=== PATIENT | male | born 1950 | race Caucasian/White ===

== ENCOUNTER 2018-04-03 08:51 | Inpatient (IN) ==
[2018-04-03] MEDS: 0.9 % Sodium Chloride 1,000 ML IVC SCH (10:05)
--- NOTE | 2018-04-03 10:41 | History & Physical Report ---
Date of Encounter: 04/03/18 Time of Encounter: 10:40 24 Hour HP Update - Instructions Instructions: If the History and Physical is less than 30 days old and was completed prior to A.M. admission and or procedure and has NOT been updated on calendar day of procedure please complete this update prior to performing procedure. - Update Patient reports changes in Medical Condition: No Changes in examination, assessment, or condition: No Changes in Medication: No Preop tests/diagnostics Reviewed: Yes Surgery Remains Indicated: Yes Consent for Planned Operative Procedure(s) Verified: Yes - Pre-Operative Checklist Prophylactic Antibiotic Ordered: Yes
--- NOTE | 2018-04-03 10:42 | Pre-Sedation Evaluation ---
Pre-sedation evaluation - Pre-sedation checklist Date of procedure: 04/03/18 Procedure: PACEMAKER INSERTION Recent Vitals: Last Vital Signs Temp 96.8 F L 04/03/18 09:45 Pulse 63 04/03/18 09:45 Resp 18 04/03/18 09:45 BP 153/100 04/03/18 09:45 Pulse Ox 99 04/03/18 09:45 H&P (including ROS) documented in medical record: Yes Previous reaction to sedatives/anesthetics: No Dietary Status: NPO after Midnight Airway Assessment: Patient can open mouth completely, TMJ function normal, Micrognathia (under-bite, receding chin) absent Dentition: No loose teeth or bridges Possible difficult airway: No ASA Classification *see protocol: CLASS II-Mild systemic disease Plan of Care: Pt appropriate candidate for procedure/moderate/conscious sedation, Risks/benefits of procedure/sedation discussed w/ patient/family
[2018-04-03] MEDS ORDERED: *HR* Midazolam HCl 2 MG/2 ML VIAL ONE (11:04)
[2018-04-03] MEDS ORDERED: *HR* FentaNYL (PF) 100 MCG/2 ML VIAL ONE (11:04)
[2018-04-03] MEDS ORDERED: Water for inj. (sterile) 10 ML IV ONE (11:07)
[2018-04-03] MEDS ORDERED: 0.9 % Sodium Chloride 500 ML ONE (11:07)
[2018-04-03] MEDS ORDERED: Acetaminophen 325 MG TABLET PO PRN (12:10)
[2018-04-03] MEDS ORDERED: *HR* OxyCODONE Immed Rel 5 MG TABLET PO PRN (12:10)
--- NOTE | 2018-04-03 15:31 | Electrocardiograph Report ---
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
[2018-04-03] MEDS: Artificial Tears SOLN 15 ML BOTTLE OP SCH (20:02)
[2018-04-04 04:00] LABS: BUN/Creatinine Ratio 18 (6-26); Blood Urea Nitrogen 20 mg/dL (8-23); Carbon Dioxide 26 mEq/L (23-29); Chloride 107 mEq/L (98-107); Potassium 4.2 mEq/L (3.5-5.1); Sodium 139 mEq/L (136-145); eGFR For Non-African Americans > 60 (> 60)
[2018-04-04] MEDS: Aspirin Enteric Coated 325 MG Tablet PO SCH (08:38)
[2018-04-04] MEDS: Artificial Tears SOLN 15 ML BOTTLE OP SCH ×2 (09:43→21:56)
--- NOTE | 2018-04-04 10:32 | Cardiology Progress Note ---
Date of Encounter: 04/04/18 Time of Encounter: 10:29 Assessment and Plan (1) Cardiac pacemaker Current Visit: Yes Status: Acute S/p dual chamber PPM placement for sinus pauses up to 4 seconds seen on loop recorder. Loop recorder also removed. Post day device check shows normal functioning device. CXR is pending. Patient denies pain. Out-pt f/u with [facility] [facility] and Dr. Geovani Dillard will be coordinated. (2) Encounter for monitoring anti-arrhythmic therapy Current Visit: Yes Status: Acute H/o PAF on flecainide. Discussed with Dr. Geovani Dillard. Recommend increasing from 100 mg Q12 hours to 150 mg every 12 hours. Patient received dose this morning. Will start flecainide 150 mg Q12hr with evening dose. Will need to be monitored for five doses. Anticipate d/c saturday04/07/18. EKG baseline 04/03/18, NSR, HR 59, 416/414, QRS 96. Repeat EKG Q am. Eliquis held for PPM placement and loop recorder removal. I will discuss restarting with Dr. Dillard. (3) Atrial fibrillation Current Visit: Yes Status: Acute H/o symptomatic PAF on flecainide and eliquis. TTE 05/2016- LVEF 65%. Normal left ventricular size and systolic function. There is evidence of mild diastolic dysfunction of the left ventricle. Normal right ventricular size and function. No significant valvular dysfunction. No pulmonary hypertension. Qualifiers: Atrial fibrillation type: paroxysmal Qualified Code(s): I48.0 - Paroxysmal atrial fibrillation (4) Sinus pause Current Visit: Yes Status: Acute Discussion w patient/family: The assessment and plan as outlined above was discussed with the patient and/or family members who expressed understanding and agreement. All questions were answered. Thank you for involving us in the care of your patient. Please call with any questions. Subjective Principal diagnosis: atrial fibrillation, PPM placement Interval history: Mr. Plummer is a 67-year old male who presented for elective PPM placement after he was found to have sinus pauses up to 4 seconds on is loop recorder. He has a past medical history of syncopal episode correlated with sinus pause and PAF on flecainide. He was also recommended to have his flecainide increased during his stay [place] to frequent symptomatic PAF. He denies pain with his incision. Reports having afib last night and not feeling well with it. Objective Vital Signs, Last 4 Hours Temp Pulse Resp BP Pulse Ox 04/04/18 07:26 97.7 F 64 17 117/81 97 General: Conversant, No Apparent Distress HEENT: Atraumatic, Normocephaly, Mucus Membranes Moist Neck: No JVD, Normal carotid pulses Cardiac: Reg Rate and Rhythm, Normal S1 and S2, No Murmur, Other (TOREY incision dry and dressing intact. No redness, edema, or swelling. ) Lungs: Normal Breath Sounds, No Wheeze, Rales, Rhonchi Neuro: Alert and responsive, No focal deficits noted Abdomen: Soft, Non-Tender Skin: No rashes noted on visualized skin Musculoskeletal: No Chest Wall Tenderness Extremities: No Clubbing, No Cyanosis, No Edema, Normal Pulses Results 04/04/18 03:08 Lab Results 04/04/18 03:08 Sodium 139 Potassium 4.2 Chloride 107 Carbon Dioxide 26 BUN 20 Creatinine 1.12 - EKG Interpretation EKG results cardiology: personally reviewed Consult Discharge Plan - Plan Referrals: Geovani Jj MD [Primary Care Provider] -
--- NOTE | 2018-04-04 13:37 | Electrocardiograph Report ---
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
--- NOTE | 2018-04-04 15:44 | Event Note ---
Date of Encounter: 04/04/18 Time of Encounter: 15:40 - Cardiology Event Note Discussed with Dr. Geovani Dillard; recommend inpatient admission after PPM (sinus pause) for increase in Flecainide d/t symptomatic PAF. Symptoms include palpitations, fatigue, activity intolerance. Of note, patient had ~1 hour of PAF overnight per telemetry review prior to Flecainide dose increase. Plan to increase Flecainde to 150 mg BID; first dose this evening. Will need inpatient monitoring for at least 5 doses. Restart Eliquis x1 week after PPM. Anticipate discharge on Saturday.
[2018-04-04] MEDS: 0.9 % Sodium Chloride 1,000 ML IVC SCH (16:34)
[2018-04-04] MEDS: *HR* Heparin 5,000 UNIT/ML VIAL SQ SCH (17:13)
[2018-04-05] MEDS: *HR* Heparin 5,000 UNIT/ML VIAL SQ SCH ×2 (06:28→18:17)
[2018-04-05] MEDS: Aspirin Enteric Coated 325 MG Tablet PO SCH (08:25)
[2018-04-05] MEDS: 0.9 % Sodium Chloride 1,000 ML IVC SCH (08:27)
[2018-04-05] MEDS: Artificial Tears SOLN 15 ML BOTTLE OP SCH ×2 (08:27→20:44)
--- NOTE | 2018-04-05 09:33 | Cardiology Progress Note ---
Date of Encounter: 04/05/18 Time of Encounter: 08:45 Assessment and Plan (1) Atrial fibrillation Current Visit: Yes Status: Acute Admission s/p PPM implant for increase in Flecainide (150 mg Q12H) d/t symptomatic PAF--dyspnea, palpitations, fatigue. Baseline ECG: SR 60 BPM QT/QTc 399, 399 ms s/p 2 doses of Flecainide ECG today, 04/05/18 SR 63 BPM QT/QTc 431/438 No episodes of PAF overnight. Continue Felcainide and lopressor. Will need inpatient monitoring for at least 5 doses, anticipate discharge to home Saturday AM. Eliquis on hold s/p PPM implant, resume 04/10/18. Continue Lovenox at VTE prophylaxis dose. Qualifiers: Atrial fibrillation type: paroxysmal Qualified Code(s): I48.0 - Paroxysmal atrial fibrillation (2) Cardiac pacemaker Current Visit: Yes Status: Acute S/p dual chamber PPM placement for sinus pauses up to 4 seconds seen on loop recorder. Loop recorder also removed. Post day device check shows normal functioning device. CXR demonstrated stable chest. Patient denies pain. Out-pt f/u with [facility] and Dr. Geovani Dillard will be coordinated. (3) Encounter for monitoring anti-arrhythmic therapy Current Visit: Yes Status: Acute As above. (4) Sinus pause Current Visit: Yes Status: Acute s/p PPM Discussion w patient/family: The assessment and plan as outlined above was discussed with the patient and/or family members who expressed understanding and agreement. All questions were answered. Thank you for involving us in the care of your patient. Please call with any questions. The patient will be discussed and reviewed with Dr. Saeed; changes to be made accordingly. Subjective Principal diagnosis: atrial fibrillation, PPM placement Interval history: Seen and examined. No complaints overnight. No issues with PPM/loop recorder removal incisions. No PAF described. Objective Vital Signs, Last 4 Hours Temp Pulse Resp BP Pulse Ox 04/05/18 07:12 97.6 F 74 19 121/78 96 General: Conversant, No Apparent Distress HEENT: Atraumatic, Normocephaly, Mucus Membranes Moist Neck: No JVD, Normal carotid pulses Cardiac: Reg Rate and Rhythm, Normal S1 and S2, No Murmur Lungs: Normal Breath Sounds, No Wheeze, Rales, Rhonchi Neuro: Alert and responsive, No focal deficits noted Abdomen: Soft, Non-Tender Skin: No rashes noted on visualized skin Musculoskeletal: No Chest Wall Tenderness Extremities: No Clubbing, No Cyanosis, No Edema, Normal Pulses Other: left upper chest wall PPM site: dressing C/D/I, no oozing or bleeding noted. No swelling. left mid chest wall: ILR removal site--dressing C/D/I Results 04/04/18 03:08 Active Medications Acetaminophen (Tylenol) 650 mg PO Q4HR PRN PRN Reason: Mild Pain Stop: 10/03/18 12:11 Artificial Tears (Akwa Tears) 1 drop OP BID DAISY Stop: 10/03/18 21:01 Last Admin: 04/05/18 08:27 Dose: 1 drop Aspirin (Aspirin Ec) 325 mg PO DAILY DAISY Stop: 10/04/18 09:01 Last Admin: 04/05/18 08:25 Dose: 325 mg Flecainide Acetate (Flecainide) 150 mg PO Q12HR DAISY Stop: 10/04/18 18:01 Last Admin: 04/05/18 06:28 Dose: 150 mg Heparin Sodium (Porcine) (Heparin) 5,000 unit SQ Q12HCO DAISY Stop: 10/04/18 18:01 Last Admin: 04/05/18 06:28 Dose: 5,000 unit Sodium Chloride (0.9 % Sodium Chloride) 1,000 mls @ 25 mls/hr IVC .Q24H DAISY Stop: 10/03/18 09:31 Last Admin: 04/05/18 08:27 Dose: Not Given Metoprolol Tartrate (Lopressor) 25 mg PO BID DAISY Stop: 10/03/18 21:01 Last Admin: 04/05/18 08:25 Dose: 25 mg Naproxen (Naprosyn) 500 mg PO TID PRN; Protocol PRN Reason: Pain Stop: 10/03/18 12:13 Oxycodone HCl (Roxicodone) 5 mg PO Q4HR PRN; Protocol PRN Reason: Severe Pain Stop: 10/03/18 12:11 - Imaging and Cardiology Other Results: 12 hour tele: avg HR=66 SR. No PAF noted. - EKG Interpretation EKG results cardiology: personally reviewed Consult Discharge Plan - Plan Referrals: Geovani Jj MD [Primary Care Provider] - 04/14/18 10:15 am
[2018-04-06] MEDS: *HR* Heparin 5,000 UNIT/ML VIAL SQ SCH ×2 (06:48→18:05)
--- NOTE | 2018-04-06 09:06 | Cardiology Progress Note ---
Date of Encounter: 04/06/18 Time of Encounter: 08:30 Assessment and Plan (1) Atrial fibrillation Current Visit: Yes Status: Acute Admission s/p PPM implant for increase in Flecainide (150 mg Q12H) d/t symptomatic PAF--dyspnea, palpitations, fatigue. Baseline ECG: SR 60 BPM QT/QTc 399, 399 ms s/p 4 doses of Flecainide ECG today, 04/06/18 SR 61 BPM QT/QTc 413/415 No episodes of PAF overnight. Continue Felcainide and lopressor. Will need inpatient monitoring for at least 5 doses, anticipate discharge to home Saturday AM. Eliquis on hold s/p PPM implant, resume 04/10/18. Continue Lovenox at VTE prophylaxis dose. Qualifiers: Atrial fibrillation type: paroxysmal Qualified Code(s): I48.0 - Paroxysmal atrial fibrillation (2) Cardiac pacemaker Current Visit: Yes Status: Acute S/p dual chamber PPM placement for sinus pauses up to 4 seconds seen on loop recorder. Loop recorder also removed. Post day device check shows normal functioning device. CXR demonstrated stable chest. Patient denies pain. Out-pt f/u with [facility] and Dr. Geovani Dillard will be coordinated. (3) Encounter for monitoring anti-arrhythmic therapy Current Visit: Yes Status: Acute As above. (4) Sinus pause Current Visit: Yes Status: Acute s/p PPM Discussion w patient/family: The assessment and plan as outlined above was discussed with the patient and/or family members who expressed understanding and agreement. All questions were answered. Thank you for involving us in the care of your patient. Please call with any questions. The patient will be discussed and reviewed with Dr. Saeed; changes to be made accordingly. Subjective Principal diagnosis: atrial fibrillation, PPM placement Interval history: Seen and examined. No complaints overnight. No issues with PPM/loop recorder removal incisions. ~25 minutes of PAF overnight, he reports may be secondary to late night snack of chocolate. Objective Vital Signs, Last 4 Hours Temp Pulse Resp BP Pulse Ox 04/06/18 08:09 97.9 F 68 18 115/80 94 04/06/18 05:46 97.8 F 60 18 108/71 96 General: Conversant, No Apparent Distress HEENT: Atraumatic, Normocephaly, Mucus Membranes Moist Neck: No JVD, Normal carotid pulses Cardiac: Reg Rate and Rhythm, Normal S1 and S2, No Murmur Lungs: Normal Breath Sounds, No Wheeze, Rales, Rhonchi Neuro: Alert and responsive, No focal deficits noted Abdomen: Soft, Non-Tender Skin: No rashes noted on visualized skin Musculoskeletal: No Chest Wall Tenderness Extremities: No Clubbing, No Cyanosis, No Edema, Normal Pulses Other: left upper chest wall: dressing removed, steri strips intact, incision well approximated without bleeding. Left mid chest ILR removal site: dressing removed, steri strips intact. Results 04/04/18 03:08 Active Medications Acetaminophen (Tylenol) 650 mg PO Q4HR PRN PRN Reason: Mild Pain Stop: 10/03/18 12:11 Artificial Tears (Akwa Tears) 1 drop OP BID DAISY Stop: 10/03/18 21:01 Last Admin: 04/05/18 20:44 Dose: Not Given Aspirin (Aspirin Ec) 325 mg PO DAILY DAISY Stop: 10/04/18 09:01 Last Admin: 04/05/18 08:25 Dose: 325 mg Flecainide Acetate (Flecainide) 150 mg PO Q12HR DAISY Stop: 10/04/18 18:01 Last Admin: 04/06/18 06:47 Dose: 150 mg Heparin Sodium (Porcine) (Heparin) 5,000 unit SQ Q12HCO DAISY Stop: 10/04/18 18:01 Last Admin: 04/06/18 06:48 Dose: 5,000 unit Sodium Chloride (0.9 % Sodium Chloride) 1,000 mls @ 25 mls/hr IVC .Q24H DAISY Stop: 10/03/18 09:31 Last Admin: 04/05/18 08:27 Dose: Not Given Metoprolol Tartrate (Lopressor) 25 mg PO BID DAISY Stop: 10/03/18 21:01 Last Admin: 04/05/18 20:44 Dose: 25 mg Naproxen (Naprosyn) 500 mg PO TID PRN; Protocol PRN Reason: Pain Stop: 10/03/18 12:13 Last Admin: 04/05/18 18:49 Dose: 500 mg Oxycodone HCl (Roxicodone) 5 mg PO Q4HR PRN; Protocol PRN Reason: Severe Pain Stop: 10/03/18 12:11 - Imaging and Cardiology Other Results: 12 hour tele: avg HR=66. ~20 minutes PAF noted overnight. - EKG Interpretation EKG results cardiology: personally reviewed Consult Discharge Plan - Plan Referrals: Geovani Jj MD [Primary Care Provider] - 04/14/18 10:15 am
[2018-04-06] MEDS: Aspirin Enteric Coated 325 MG Tablet PO SCH (10:49)
[2018-04-06] MEDS: Artificial Tears SOLN 15 ML BOTTLE OP SCH ×2 (10:53→21:19)
[2018-04-06] MEDS: 0.9 % Sodium Chloride 1,000 ML IVC SCH (10:54)
[2018-04-07] MEDS: *HR* Heparin 5,000 UNIT/ML VIAL SQ SCH (06:16)
[2018-04-07 07:19] VITALS: BP 106/79
[2018-04-07] MEDS: Aspirin Enteric Coated 325 MG Tablet PO SCH (09:10)
[2018-04-07] MEDS: Artificial Tears SOLN 15 ML BOTTLE OP SCH (09:33)
--- NOTE | 2018-04-07 10:13 | Discharge Summary ---
Date of Encounter: 04/07/18 Time of Encounter: 09:45 - Discharge Diagnosis (1) Atrial fibrillation Priority: Primary Status: Acute Comments: s/p dose increase of Flecainide to 150 mg q12h Qualifiers: Atrial fibrillation type: paroxysmal Qualified Code(s): I48.0 - Paroxysmal atrial fibrillation (2) Cardiac pacemaker Priority: Primary Status: Acute Comments: PPM implant for sinus pause (3) Encounter for monitoring anti-arrhythmic therapy Priority: Secondary Status: Acute (4) Sinus pause Priority: Primary Status: Acute - Hospital Course Hospital course: Mr. Plummer is a 67 year old male who presented for implant of PPM (sinus pause, symptomatic) noted on ILR, he was recommended to have PPM implant. At the time of PPM implant, ILR removed. He also has hx of of symptomatic PAF, given recurrent and frequent episodes of symptomatic PAF, he was recommended to remain as inpatient for dose increase of Flecainide to 150 mg q12H. Mr. Plummer remained as inpatient over the weekend, he is s/p 5 doses of 150 mg of Flecainide. QT/QTc have remained stable. No episodes of PAF noted overnight. Discussed with Dr. Dillard, he will resume his Eliquis on 04/10/18 after PPM implant. No issues with incision sites. Mr. Plummer is being prepped for discharge to home today in stable condition. All questions and concerns were addressed. Post PPM restrictions, care of site, and follow-up discussed with patient. Patient was discussed and reviewed with Dr. Geovani Dillard who agrees with plan as stated above. - Time Spent with Patient Total time spent providing and/or coordinating discharge services: 30 minutes Specific discharge activities: Resume Eliquis on 04/10/18 s/p 1 week PPM implant. No heavy lifting x1 month s/p PPM. Keep incisions clean and dry until healed. Do not lift left arm above level of shoulder x1 month - Discharge Medications Prescriptions: Flecainide 150 mg PO Q12HR 7 Days #14 tablet Home Medications: Aspirin [Ecotrin] 325 mg PO DAILY 12/24/17 [History] Naproxen [Naprosyn] 500 mg PO TID PRN 12/24/17 [History] Propylene Glycol/Peg 400 [Systane Gel Eye Drops] 1 drop OP BID PRN 12/24/17 [History] Apixaban [Eliquis] 5 mg PO BID 04/03/18 [History] Flecainide Acetate 150 mg PO Q12H #180 tablet 04/04/18 [Rx] Metoprolol [Lopressor] 25 mg PO BID 04/05/18 [History] Flecainide 150 mg PO Q12HR 7 Days #14 tablet 04/07/18 [Rx] Allergies/Adverse Reactions: Allergy/AdvReac Type Severity Reaction Status Date / Time No Known Allergies Allergy Verified 03/23/17 13:02 Date of admission: 04/04/18 15:58 Primary care physician: Geovani Jj MD Discharging clinician: Mamta Self Anticipated date of discharge: 04/07/18 Physical Examination Vital Signs, Last 4 Hours Temp Pulse Resp BP Pulse Ox 04/07/18 07:17 98.0 F 71 14 106/79 96 General: Conversant, No Apparent Distress HEENT: Atraumatic, Normocephaly, Mucus Membranes Moist Neck: No JVD, Normal carotid pulses Cardiac: Reg Rate and Rhythm, Normal S1 and S2, No Murmur Lungs: Normal Breath Sounds, No Wheeze, Rales, Rhonchi Neuro: Alert and responsive, No focal deficits noted Abdomen: Soft, Non-Tender Skin: No rashes noted on visualized skin Musculoskeletal: No Chest Wall Tenderness Extremities: No Clubbing, No Cyanosis, No Edema, Normal Pulses Other: left upper chest wall: incision intact, well approximated. Steri strips intact. No bleeding or edema noted. left mid chest: steri strips intact (ILR removal) no bleeding - Patient Status Disposition: Home, Self-Care Condition: Good Functional capacity at discharge: independent ambulation Overall status at discharge: patient is back to baseline - Discharge Instructions Follow Up With: Geovani Jj MD [Primary Care Provider] - 04/14/18 10:15 am Geovani Dillard MD [Partnered Physician] - 04/10/18 1:00 pm (Wound check) Additional Instructions: ACTIVITY: Moderate activity for the next 7 days. No lifting more than 5 pounds (gallon of milk) for 4-6 weeks. Avoid lifting your arm on the same side as the device for 4 weeks. BATHING /SHOWERING: Do not remove the large bandage over the site for 2 days. Do not allow the device to get wet for 7-10 days. You may bathe/shower, but do not use soap and water on the site. When bathing, keep the site dry by covering with Saran wrap or a towel. WOUND CARE: The white steri-strips will start to peel away and come off after 14 days, or your doctor will remove them after [address] into or on top of the incision. Do not use cotton swabs. Do not use any antibiotic ointment or Vitamin E on the site. REMINDERS: You may use electrical devices, such as, microwaves, hair dryers, electric razors, electric blankets, etc. as long as they are in good condition and kept 6-8 inches away from the device. It is recommended to use cell phones on the opposite side of your device. Notify security personnel at the airport that you have a device before you go through airport security screening. When at places with security monitors, such as a grocery store, do not linger near these monitors. It is fine to walk past them in a normal manner. Refer to your owners manual for more specific directions. CARRY YOUR PACEMAKER/ICD CARD WITH YOU AT ALL TIMES Return to work as instructed per physician Resume driving as instructed per physician Keep all scheduled follow up appointments Resume medications as instructed Contact [facility] ( ) if: You develop excessive bleeding from insertion or wound site not controlled by applying pressure You develop a fever greater than 101 degrees Fahrenheit Your incision becomes reddened at or around the site Your incision develops yellowish or greenish drainage or development of white pimple-like bumps You experience excessive pain You develop swelling in your ankles You experience muscle switching You develop excessive hiccupping If you experience chest pain, shortness of breath, dizziness, or extreme tiredness, stop the activity and rest. Please notify [facility] office if you experience any of these symptoms and they are not relieved by rest please call 911! - Diet and Activity Activity: return to work once cleared by your PCP/specialist, resume usual activities as tolerated (per post PPM implant discharge instructions) Diet: low fat, low cholesterol, low salt diet
--- NOTE | 2018-04-07 16:47 | Electrocardiograph Report ---
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
--- NOTE | 2018-04-07 17:59 | Electrocardiograph Report ---
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
--- NOTE | 2018-04-08 17:27 | Electrocardiograph Report ---
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
== END 2018-04-07 12:59 | disposition home or self-care (01) | DRG 244 ==
LOC: INVDIALAB 08:51 → 2NENU 12:51
PROVIDERS: ADMIT Internal Medicine Clinical Cardiac Electrophysiology; ATTEND Internal Medicine Clinical Cardiac Electrophysiology